=== PATIENT | female | born 1960 | race Caucasian/White ===

== ENCOUNTER 2016-12-18 07:21 | Day surgery (SDC) | payer OTHER ==
[2016-12-16 09:11] VITALS: BMI 25.0
[2016-12-18] MEDS ORDERED: PROPOFOL 20 ML ONE ×2 (07:27)
[2016-12-18 09:16] VITALS: TEMP 97.6
[2016-12-18 09:48] VITALS: BP 113/82; PULSE 69
== END 2016-12-18 10:15 | disposition home or self-care (01) ==
LOC: FASU-ENDO 07:21
PROVIDERS: ATTEND Internal Medicine Gastroenterology
PROC: 0DJD8ZZ Inspection of Lower Intestinal Tract, Via Natural or Artificial Opening Endoscopic (ICD-10-PCS; principal; 2016-12-18 08:32)
DX: Z12.11 Encounter for screening for malignant neoplasm of colon (principal); Z80.0 Family history of malignant neoplasm of digestive organs